=== PATIENT | male | born 1975 | race Caucasian/White ===

== ENCOUNTER 2020-07-26 09:05 | Inpatient (IN) | payer OTHER ==
[~2020-07-26] VITALS: Ht 170.2 cm; Wt 91.5 kg
[2020-07-26] MEDS ORDERED: DEXAMETHASONE SOD PHOS 10 MG/ML VIAL. IVP ONE (09:30)
[2020-07-26] MEDS ORDERED: ASPIRIN 325 MG TABLET PO ONE (09:30)
[2020-07-26] MEDS ORDERED: IV NORMAL SALINE 1,000ML 1,000 ML IV ONE (09:30)
[2020-07-26 09:58] LABS: BASO % 1 % (0-3); EOS # 0.2 x10^3/uL (0.0-0.7); EOS % 4 % (0-3); HEMATOCRIT 48.6 % (39.0-53.0); HEMOGLOBIN 16.6 g/dL (13.0-17.5); LYMPH # 1.3 x10^3/uL (1.0-4.8); LYMPH % 34 % (24-48); MEAN CORPUSCULAR HEMOGLOBIN 32 pg (25-35); MEAN CORPUSCULAR HGB CONC 34 g/dL (31-37); MEAN CORPUSCULAR VOLUME 94 fL (79-100); MONO # 0.4 x10^3/uL (0.0-1.1); MONO % 11 % (0-9); NEUT # 1.9 x10^3uL (1.8-7.7); NEUT % 51 % (31-73); PLATELET COUNT 210 x10^3/uL (140-400); RED BLOOD COUNT 5.17 x10^6/uL (4.30-5.70); RED CELL DISTRIBUTION WIDTH 12.6 % (11.5-14.5); WHITE BLOOD COUNT 3.8 x10^3/uL (4.0-11.0)
[2020-07-26 10:00] LABS: CALCIUM 9.1 mg/dL (8.5-10.1); CREATININE 1.2 mg/dL (0.7-1.3); GFR 64.9; POTASSIUM 4.4 mmol/L (3.5-5.1)
[2020-07-26 10:14] LABS: ALBUMIN 4.1 g/dL (3.4-5.0); ALBUMIN/GLOBULIN RATIO 1.1 (1.0-1.7); MAGNESIUM 2.3 mg/dL (1.8-2.4); TOTAL BILIRUBIN 0.9 mg/dL (0.2-1.0); TOTAL PROTEIN 7.8 g/dL (6.4-8.2)
[2020-07-26 10:25] LABS: BILIRUBIN,URINE NEG (NEG); CLARITY,URINE HAZY; COLOR,URINE AMBER; GLUCOSE,URINE NEG (NEG)
[2020-07-26 10:26] LABS: BACTERIA,URINE 0 /HPF (0-FEW); NITRITE,URINE NEG (NEG); SQUAMOUS EPITHELIAL CELL,UR OCC /LPF; WBC,URINE OCC /HPF (0-4)
--- NOTE | 2020-07-26 10:54 | PHYS DOC ---
Past History Past Medical History: High Cholesterol (Diet controlled?), Hypertension (Diet controlled?), Other Additional Past Medical Histor: Sleep Apnea Past Surgical History: No Surgical History Smoking: Non-smoker Alcohol Use: Rarely Drug Use: None General Adult EDM: Chief Complaint: CHEST PAIN HPI: HPI: 45-year-old male presents with 4-day history of chest discomfort. Patient reports he recently tested positive on 07/20/2020 for COVID-19 at [facility]. Patient did have body aches and fever/chills that started on Sunday. Reports roommate positive as well. Patient reports today he had increased shortness of breath. Patient called [facility] who instructed him to be seen at urgent care or ER. Patient reports he called in urgent care who instructed him to present to the ER for further evaluation. Patient denies any leg swelling or calf tenderness. Denies history or family history of DVT/PE. Patient reports cardiac risk factors of "diet controlled" hypertension and high cholesterol for which he has never been started on medication. Patient also reports some dizziness. Denies any nausea or vomiting. Review of Systems: Review of Systems: Constitutional: Denies fever or chills Eyes: Denies redness or eye pain HENT: Denies nasal congestion or sore throat Respiratory: Reports cough and shortness of breath Cardiovascular: Reports chest pain; denies palpitations GI: Denies abdominal pain, nausea, or vomiting : Denies dysuria or hematuria Musculoskeletal: Denies back pain or joint pain Integument: Denies rash or skin lesions Neurologic: Denies headache, focal weakness or sensory changes Complete systems were reviewed and found to be within normal limits, except as documented in this note. Current Medications: Current Meds: Current Medications Medications (Trade) Dose Ordered Sig/[facility] Start Time Stop Time Status Last Admin Dose Admin Aspirin (Adrianna Aspirin) 325 mg 1X ONCE 07/26/20 09:30 07/26/20 09:56 DC 07/26/20 09:41 325 MG Dexamethasone Sodium Phosphate (Decadron) 10 mg 1X ONCE 07/26/20 09:30 07/26/20 09:56 DC 07/26/20 09:41 10 MG Sodium Chloride 1,000 ml @ 1,000 mls/hr 1X ONCE 07/26/20 09:30 07/26/20 10:29 DC 07/26/20 09:42 1,000 MLS/HR Allergies: Allergies: Allergies Coded Allergies Type Severity Reaction Last Updated Verified No Known Drug Allergies 07/26/20 No Physical Exam: PE: Constitutional: Well developed, well nourished, no acute distress, non-toxic appearance HENT: Normocephalic, atraumatic Eyes: Conjunctiva normal, no discharge Neck: Normal range of motion, supple Lungs & Thorax: No respiratory distress, equal chest rise and fall, frequent intermittent deep inspirations Abdomen: Soft, no tenderness Skin: Warm, dry, no erythema, no rash Extremities: No tenderness, ROM intact, no edema Neurologic: Alert and oriented X 3, normal motor function, normal sensory function, no focal deficits noted Psychologic: Affect normal, judgment normal Current Patient Data: Labs: Laboratory Tests Test 07/26/20 09:35 07/26/20 09:43 White Blood Count 3.8 x10^3/uL (4.0-11.0) L Red Blood Count 5.17 x10^6/uL (4.30-5.70) Hemoglobin 16.6 g/dL (13.0-17.5) Hematocrit 48.6 % (39.0-53.0) Mean Corpuscular Volume 94 fL (79-100) Mean Corpuscular Hemoglobin 32 pg (25-35) Mean Corpuscular Hemoglobin Concent 34 g/dL (31-37) Red Cell Distribution Width 12.6 % (11.5-14.5) Platelet Count 210 x10^3/uL (140-400) Neutrophils (%) (Auto) 51 % (31-73) Lymphocytes (%) (Auto) 34 % (24-48) Monocytes (%) (Auto) 11 % (0-9) H Eosinophils (%) (Auto) 4 % (0-3) H Basophils (%) (Auto) 1 % (0-3) Neutrophils # (Auto) 1.9 x10^3uL (1.8-7.7) Lymphocytes # (Auto) 1.3 x10^3/uL (1.0-4.8) Monocytes # (Auto) 0.4 x10^3/uL (0.0-1.1) Eosinophils # (Auto) 0.2 x10^3/uL (0.0-0.7) Basophils # (Auto) 0.0 x10^3/uL (0.0-0.2) Prothrombin Time 10.1 SEC (9.4-11.4) Prothrombin Time INR 1.0 (0.9-1.1) Activated Partial Thromboplast Time 26 SEC (23-33) D-Dimer (Graciela) 0.29 mg/L (0.00-0.50) Sodium Level 138 mmol/L (136-145) Potassium Level 4.4 mmol/L (3.5-5.1) Chloride Level 102 mmol/L (98-107) Carbon Dioxide Level 33 mmol/L (21-32) H Anion Gap 3 (6-14) L Blood Urea Nitrogen 16 mg/dL (8-26) Creatinine 1.2 mg/dL (0.7-1.3) Estimated GFR (Cockcroft-Gault) 64.9 BUN/Creatinine Ratio 13 (6-20) Glucose Level 89 mg/dL (70-99) Lactic Acid Level 1.1 mmol/L (0.4-2.0) Calcium Level 9.1 mg/dL (8.5-10.1) Magnesium Level 2.3 mg/dL (1.8-2.4) Total Bilirubin 0.9 mg/dL (0.2-1.0) Aspartate Amino Transferase (AST) 25 U/L (15-37) Alanine Aminotransferase (ALT) 42 U/L (16-63) Alkaline Phosphatase 90 U/L (46-116) Troponin I Quantitative 0.060 ng/mL (0-0.055) H FU-Uck-K-Type Natriuretic Peptide 18 pg/mL (0-124) Total Protein 7.8 g/dL (6.4-8.2) Albumin 4.1 g/dL (3.4-5.0) Albumin/Globulin Ratio 1.1 (1.0-1.7) Lipase 171 U/L (73-393) Urine Collection Type Unknown Urine Color Jess Urine Clarity Hazy Urine pH 8.5 Urine Specific [place] 1.020 Urine Protein Trace (NEG-TRACE) Urine Glucose (UA) Neg mg/dL (NEG) Urine Ketones (Stick) Neg mg/dL (NEG) Urine Blood Neg (NEG) Urine Nitrite Neg (NEG) Urine Bilirubin Neg (NEG) Urine Urobilinogen Dipstick 1.0 mg/dL (0.2 mg/dL) Urine Leukocyte Esterase Neg (NEG) Urine RBC 1-2 /HPF (0-2) Urine WBC Occ /HPF (0-4) Urine Squamous Epithelial Cells Occ /LPF Urine Bacteria 0 /HPF (0-FEW) Urine Mucus Slight /LPF Vital Signs: Vital Signs Date Time Temp Pulse Resp B/P (MAP) Pulse Ox O2 Delivery O2 Flow Rate FiO2 07/26/20 10:00 43 16 131/85 (100) 98 Room Air 07/26/20 09:10 97.8 EKG: EKG: @0920 Sinus bradycardia at 50bpm, NO ST elevation, Jpoint elevation of I and aVL, QRS 94ms, QT/QTc 422/387ms Radiology/Procedures: Radiology/Procedures: PROCEDURE: CHEST AP ONLY EXAM: AP View of the chest DATE: 07/26/2020 10:35 AM INDICATION: Reason: chest pain/pressure/SOA, hx of COVID + / Spl. Instructions: / History: COMPARISON: No Prior FINDINGS: The heart is not enlarged. Mediastinal and hilar contours are normal. Patchy opacities bilateral lung bases likely atelectasis or developing consolidation. No pleural effusion or pneumothorax. IMPRESSION: Patchy opacities bilateral lung bases likely atelectasis or developing consolidation. Electronically signed by: Angel Yarbrough MD (07/26/2020 12:55 PM) [id number] Heart Score: HEART Score for Chest Pain: HEART Score for Chest Pain Response (Comments) Value History Slighlty/Non-Suspicious 0 ECG Normal 0 Age >45 - < 65 1 Risk Factors 1 or 2 Risk Factors 1 Troponin >1-<3x Normal Limit 1 Total 3 Risk Factors: Risk Factors: DM, Current or recent (<one month) smoker, HTN, HLP, family history of CAD, obesity. Risk Scores: Score 0 - 3: 2.5% MACE over next 6 weeks - Discharge Home Score 4 - 6: 20.3% MACE over next 6 weeks - Admit for Clinical Observation Score 7 - 10: 72.7% MACE over next 6 weeks - Early Invasive Strategies Course & Med Decision Making: Course & Med Decision Making Pertinent Labs and Imaging studies reviewed. (See chart for details) Patient presents with report of chest discomfort and shortness of air. History of recently testing positive for COVID-19. Sats stable upon arrival. EKG without signs of STEMI. Low cardiac risk factors however patient does report history of diet-controlled hypertension and high cholesterol for which he has never been on medication. Labs obtained and posted to chart. Troponin very slightly elevated at 0.06. D-dimer within normal limits. Chest x-ray stable. Discuss case with cardiology DIRECTOR OF [employer]ING [employer] with Dr. Tinajero, who reports patient may stay at [facility] and does not need further anticoagulation at this time. In agreement with observation admission to hospitalist with serial troponins. Patient requiring observation admission for further evaluation and treatment. Discussed with Dr. Hodges (hospitalist) who is in agreement with admission. Discussed findings and plan with patient, who acknowledges understanding and agreement. COVID-19 CRITERIA: The patient was evaluated during the global COVID-19 pandemic, and that diagnosis was suspected/considered upon their initial presentation. Their evaluation, treatment and testing was consistent with current guidelines for patients who present with complaints or symptoms that may be related to COVID-19. Dragon Disclaimer: Dragon Disclaimer: This electronic medical record was generated, in whole or in part, using a voice recognition dictation system. Departure Departure: Impression: Primary Impression: Chest pain Qualified Codes: R07.9 - Chest pain, unspecified Additional Impressions: Elevated troponin COVID-19 Disposition: ADMITTED INPT THIS HOSP Admitting Physician: Armida Hodges Condition: GUARDED Referrals: PCP,UNKNOWN (PCP) Scripts Dexamethasone (DEXAMETHASONE) 6 Mg Tablet 6 MG PO DAILY for covid pneumonia for 10 Days, #10 TAB Prov: ARMIDA HODGES MD 07/27/20 Azithromycin (ZITHROMAX) 250 Mg Tablet 250 MG PO DAILY for ANTI-BIOTIC for 4 Days, #4 TAB 0 Refills Prov: ARMIDA HODGES MD 07/27/20 Cefdinir (CEFDINIR) 300 Mg Capsule 1 CAP PO BID for pneumonia, #14 CAP Prov: ARMIDA HODGES MD 07/27/20 COVID-19 Assessment COVID-19 Patient Risks: Age 65 or older: No Sign of co-morbidity: No Exp to person + for COVID: Yes Exp to PUI: No Travel from affected area: No Lower respiratory symptoms: Yes Fever: Yes Other: Yes PPE Use: Full PPE with N95 mask or PAPR: Yes Critical Care Time Critical care time was 30 minutes which includes time at bedside, spent in discussion of patient's care with specialists and/or family members, with interpretation of laboratory and/or radiological studies and is exclusive of procedures. CHARLIE SANCHES DO Jul 26, 2020 10:53
--- NOTE | 2020-07-26 12:57 | RAD ---
EXAM: AP View of the chest DATE: 07/26/2020 10:35 AM INDICATION: Reason: chest pain/pressure/SOA, hx of COVID + / Spl. Instructions: / History: COMPARISON: No Prior FINDINGS: The heart is not enlarged. Mediastinal and hilar contours are normal. Patchy opacities bilateral lung bases likely atelectasis or developing consolidation. No pleural effusion or pneumothorax. IMPRESSION: Patchy opacities bilateral lung bases likely atelectasis or developing consolidation. Electronically signed by: Angel Yarbrough MD (07/26/2020 12:55 PM) [id number]
[2020-07-26 13:18] VITALS: BP 95/55
[2020-07-26] MEDS ORDERED: AZITHROMYCIN 250 MG TABLET. PO ONE (16:00)
[2020-07-26] MEDS ORDERED: OMEP40CA45 PO (16:20)
[2020-07-26] MEDS ORDERED: LACT1CAP6 PO (16:20)
--- NOTE | 2020-07-26 16:28 | EKG ---
[address] [address] Test Date: 2020-07-26 Test Time: 09:20:58 Pat Name: ISIAH EMERSON Department: Room: Gender: M Route Sales Manager: : 1975 Requested By: CHARLIE SANCHES Order Number: [id number] Reading MD: Measurements Intervals Gregory Rate: 50 P: 16 UT: 152 QRS: 1 QRSD: 94 T: -2 QT: 422 QTc: 387 Interpretive Statements SINUS RHYTHM OTHERWISE NORMAL ECG RI6.02 No previous ECG available for comparison
--- NOTE | 2020-07-26 17:30 | HP ---
ADMIT DATE: 07/26/2020 HISTORY OF PRESENT ILLNESS: The patient is a 45-year-old male patient who came to the Emergency Room complaining of chest pain. He apparently started having fever for about 8 days ago and last Sunday, he was tested positive for COVID-19 at the [facility]. He did complain of having body aches, fever, chills that started on Sunday, reported that his roommate was positive as well and he also started complaining of shortness of breath and chest discomfort. He called the [facility] who instructed him to be seen at the urgent care or ER. The patient reportedly called an urgent care who instructed him to present to the Emergency Room for further evaluation. The patient denied any swelling of his legs. He said his cough is mostly dry. He denied any medical problem. He stated that he has diet controlled hypertension and high cholesterol for which he has never started on any medication. He did report some dizziness, but denied any nausea or vomiting and he was extensively investigated in the Emergency Room, has had a CBC which showed that he has mild leukocytosis. His chemistry was essentially unremarkable. Lactic acid was normal; however, his first troponin was 0.060. His prothrombin time, INR and aPTT are normal. D-dimer was low at 0.29 and his urinalysis was essentially unremarkable. His chest x-ray apparently showed that the heart is not enlarged. Mediastinal and hilar contours are normal. There are patchy opacities bilateral lung bases, likely atelectasis or developing consolidation. There is no pleural effusion or pneumothorax. The patient was admitted to do 2 more sets of cardiac enzyme and to consult the currency exchange specialist. PAST MEDICAL HISTORY: Significant for obstructive sleep apnea, for which he is on CPAP. He has also gastroesophageal reflux disease and he stated that he has hypertension that is diet controlled and hypercholesterolemia that he never was on any treatment for it. PAST SURGICAL HISTORY: Significant for cervical spine surgery as well as multiple hernia repairs. ALLERGIES: He has no known drug allergies. MEDICATIONS: He is on omeprazole as well as probiotic. FAMILY HISTORY: He has one brother and one sister, both younger and healthy. His father is alive at the age of 76 and has coronary artery disease and hypertension. Mother is alive at the age of 73, is known to have hypertension. SOCIAL HISTORY: He is , has 2 daughters. He never smoked. He drinks alcohol on a daily basis. He drinks a glass of wine daily. He does not use any illicit drugs. He is a temporary admission here. Normally, he is stationed at [place] and he is in the [employer]. REVIEW OF SYSTEMS: The patient denied any blurring of vision, cataract, glaucoma or macular degeneration. Denied any earache, tinnitus or sensorineural deafness. Denied any nosebleeds, stuffy nose or postnasal drip. Denied any sore throat, sore tongue, toothache, hoarseness of voice or difficulty swallowing. He denied any nausea, vomiting, diarrhea or constipation. Denied any hematemesis, melena or hematochezia. Denied any dysuria, frequency or hematuria. Did complain of shortness of breath and chest discomfort. Did have some fever, aches and pains. Denied any dizziness or lightheadedness. PHYSICAL EXAMINATION: GENERAL: On arrival to the Emergency Room, he looked well and was clearly in no apparent respiratory distress. There is no pallor, jaundice, cyanosis or thyromegaly. No jugular venous distention or limb edema. VITAL SIGNS: His heart rate was 61, blood pressure was 135/61, temperature was 97.8, respiratory rate was 16, and oxygen saturation was 98% on room air. HEAD, EYES, EARS, NOSE AND THROAT: Normocephalic, atraumatic. NECK: Supple. HEART: Showed normal first and second heart sounds. No gallop, rub or murmur. CHEST: Clear to auscultation. No crepitation or rhonchi. ABDOMEN: Distended, soft, nontender. NEUROLOGIC: He was grossly intact. LABORATORY DATA: Showed a white cell count of 3800, hemoglobin 16.6, hematocrit 48.6, MCV 94, platelet count 210,000. Manual differential showed 51% polymorphs, 34% lymphocytes, 11% monocytes. His prothrombin time, INR and aPTT are normal. D-dimer was 0.29. His chemistry showed a serum sodium 138, potassium 4.4, chloride 102, bicarbonate 33, anion gap of 3, BUN 16, creatinine 1.2, estimated GFR was 64 mL per minute. His glucose was 89, lactic acid is 1.1, calcium was 9.1, magnesium was 2.3. Total bilirubin, AST, ALT, alkaline phosphatase were normal. His first set of troponin was 0.060. His beta natriuretic peptide was 18. Total protein 7.8, albumin was 4.1. Lipase was 171. His urinalysis was essentially unremarkable and his chest x-ray showed that the patient has bilateral patchy opacities of both lung bases, likely atelectasis and/or developing consolidation. ASSESSMENT AND PLAN: In summary, this is a 45-year-old male patient who was admitted with shortness of breath and chest pain. It was tested positive about a week ago. His chest x-ray has bilateral patchy infiltrate. The patient was admitted to do 2 more sets of cardiac enzymes. I will continue with dexamethasone. Start him on IV antibiotic in the form of ceftriaxone and Zithromax and monitor him closely as his oxygen saturation continues to be 97% on room air. RIOS TANG MD DR: DANIEL/marcus JOB#: [id number] / [id number]
[2020-07-26] MEDS: ACETAMINOPHEN 325 MG TABLET PO PRN (17:55)
[2020-07-26 19:00] VITALS: BP 139/82
[2020-07-26] MEDS: LACTOBACILLUS RHAMNOSUS GG 1 CAPSULE. PO SCH (20:32)
[2020-07-27 00:54] VITALS: BP 104/66
[2020-07-27 05:19] VITALS: BP 117/73
[2020-07-27 06:31] LABS: HEMATOCRIT 44.4 % (39.0-53.0); HEMOGLOBIN 15.1 g/dL (13.0-17.5); RED BLOOD COUNT 4.73 x10^6/uL (4.30-5.70); RED CELL DISTRIBUTION WIDTH 12.8 % (11.5-14.5); WHITE BLOOD COUNT 8.2 x10^3/uL (4.0-11.0)
[2020-07-27 06:44] LABS: ALBUMIN 3.5 g/dL (3.4-5.0); CALCIUM 8.7 mg/dL (8.5-10.1); GFR 80.1; POTASSIUM 3.8 mmol/L (3.5-5.1); TOTAL BILIRUBIN 0.6 mg/dL (0.2-1.0); TOTAL PROTEIN 7.1 g/dL (6.4-8.2)
[2020-07-27] MEDS ORDERED: PANTOPRAZOLE 40 MG TABLET. PO SCH (07:30)
[2020-07-27] MEDS ORDERED: DEXAMETHASONE 4 MG TABLET PO SCH (08:00)
[2020-07-27] MEDS: LACTOBACILLUS RHAMNOSUS GG 1 CAPSULE. PO SCH (08:10)
--- NOTE | 2020-07-27 08:27 | PDOC2 ---
CARDIAC CONSULT DATE OF CONSULT DOS: DATE: 07/27/20 TIME: 08:20 REASON FOR CONSULT Reason for Consult Elevated troponin Chest pain REFERRING PHYSICIAN Referring Physician Dr. De Jesus SOURCE Source: Chart review, Patient HPI History of Present Illness This is a 45 yo male who presented secondary to chest pressure and shortness of breath. About 8 days ago, began having fever, body aches, chills and some nausea. Roommate tested positive for COVID the week prior. Due to symptoms and exposure, he was evaluated at [facility] on 07/20/2020 and was + as well. Also developed cough and congestion. Has been taking [id number] Mucinex and decongestants for symptoms. On Sunday, developed pressure in his central chest. Is non-radiating. Was worse with cough. [place] more short of breath. Pain persisted on Sunday, but seemed to be slightly better Sunday. Was much improved on Sunday, but difficulty taking deep breath persisted. Family encouraged him to be seen by provided. Called [facility] who referred him to the ED as he was positive for COVID. Troponin noted to be mildly elevated, which prompted this consult. Of noted, patient is extremely active and routinely exercises. Partakes intense physical regimens with HR up to 160 for a hour of time. Denies any experience of chest pain with intense physical activity. PAST MEDICAL HISTORY Pulmonary: Other (sleep apnea ) GI: GERD PAST SURGICAL HISTORY Past Surgical History: Other (cervial surgery) FAMILY HISTORY Family History: Diabetes, Hypertension, Other (AFIB- father ) SOCIAL HISTORY Smoke: No ALCOHOL: none Drugs: None Lives: Roommate CURRENT MEDICATIONS Current Medications Current Medications Aspirin (Adrianna Aspirin) 325 mg 1X ONCE PO Last administered on 07/26/20at 09:41; Start 07/26/20 at 09:30; Stop 07/26/20 at 09:56; Status DC Sodium Chloride 1,000 ml @ 1,000 mls/hr 1X ONCE IV Last administered on 07/26/20at 09:42; Start 07/26/20 at 09:30; Stop 07/26/20 at 10:29; Status DC Dexamethasone Sodium Phosphate (Decadron) 10 mg 1X ONCE IVP Last administered on 07/26/20at 09:41; Start 07/26/20 at 09:30; Stop 07/26/20 at 09:56; Status DC Ceftriaxone Sodium 1 gm/ Sodium Chloride 50 ml @ 100 mls/hr Q24H IV Last administered on 07/26/20at 17:10; Start 07/26/20 at 16:00 Azithromycin (Zithromax) 500 mg 1X ONCE PO Last administered on 07/26/20at 17:09; Start 07/26/20 at 16:00; Stop 07/26/20 at 16:11; Status DC Azithromycin (Zithromax) 250 mg DAILY PO Last administered on 07/27/20at 08:10; Start 07/27/20 at 09:00 Dexamethasone (Decadron) 6 mg DAILYWBKFT PO Last administered on 07/27/20at 08:10; Start 07/27/20 at 08:00 Lactobacillus Rhamnosus (Culturelle) 1 cap BID PO Last administered on 07/27/20at 08:10; Start 07/26/20 at 21:00 Pantoprazole Sodium (Protonix) 40 mg DAILYAC PO Last administered on 07/27/20at 08:10; Start 07/27/20 at 07:30 Acetaminophen (Tylenol) 650 mg PRN Q6HRS PRN PO MILD PAIN / TEMP > 100.3'F Last administered on 07/26/20at 17:55; Start 07/26/20 at 17:30 Active Scripts Active Reported Probiotic (Lactobacillus Acidophilus) 1 Each Capsule 1 Cap PO BID Omeprazole 40 Mg Capsule. 1 Cap PO DAILY ALLERGIES Allergies: Coded Allergies: No Known Drug Allergies (Unverified , 07/26/20) ROS Review of Systems 14 point ROS conducted with pertinent positives noted above in HPI PHYSICAL EXAM General: Alert, Oriented X3, Cooperative, No acute distress HEENT: Atraumatic Lungs: Other (on RA) Heart: Regular rate Abdomen: Soft, No tenderness Extremities: No edema, Normal pulses Skin: No breakdown Neuro: Normal speech, Sensation intact Psych/Mental Status: Mental status NL, Mood NL MUSCULOSKELETAL: No deformity VITALS Vital Signs Vital Signs Date Time Temp Pulse Resp B/P (MAP) Pulse Ox O2 Delivery O2 Flow Rate FiO2 07/27/20 05:19 97.7 58 18 117/73 (88) 97 Room Air LABS LABS Laboratory Tests Test 07/26/20 09:35 07/26/20 09:43 07/26/20 12:40 07/26/20 17:10 White Blood Count 3.8 x10^3/uL (4.0-11.0) Red Blood Count 5.17 x10^6/uL (4.30-5.70) Hemoglobin 16.6 g/dL (13.0-17.5) Hematocrit 48.6 % (39.0-53.0) Mean Corpuscular Volume 94 fL (79-100) Mean Corpuscular Hemoglobin 32 pg (25-35) Mean Corpuscular Hemoglobin Concent 34 g/dL (31-37) Red Cell Distribution Width 12.6 % (11.5-14.5) Platelet Count 210 x10^3/uL (140-400) Neutrophils (%) (Auto) 51 % (31-73) Lymphocytes (%) (Auto) 34 % (24-48) Monocytes (%) (Auto) 11 % (0-9) Eosinophils (%) (Auto) 4 % (0-3) Basophils (%) (Auto) 1 % (0-3) Neutrophils # (Auto) 1.9 x10^3uL (1.8-7.7) Lymphocytes # (Auto) 1.3 x10^3/uL (1.0-4.8) Monocytes # (Auto) 0.4 x10^3/uL (0.0-1.1) Eosinophils # (Auto) 0.2 x10^3/uL (0.0-0.7) Basophils # (Auto) 0.0 x10^3/uL (0.0-0.2) Prothrombin Time 10.1 SEC (9.4-11.4) Prothromb Time International Ratio 1.0 (0.9-1.1) Activated Partial Thromboplast Time 26 SEC (23-33) D-Dimer (Graciela) 0.29 mg/L (0.00-0.50) Sodium Level 138 mmol/L (136-145) Potassium Level 4.4 mmol/L (3.5-5.1) Chloride Level 102 mmol/L (98-107) Carbon Dioxide Level 33 mmol/L (21-32) Anion Gap 3 (6-14) Blood Urea Nitrogen 16 mg/dL (8-26) Creatinine 1.2 mg/dL (0.7-1.3) Estimated GFR (Cockcroft-Gault) 64.9 BUN/Creatinine Ratio 13 (6-20) Glucose Level 89 mg/dL (70-99) Lactic Acid Level 1.1 mmol/L (0.4-2.0) Calcium Level 9.1 mg/dL (8.5-10.1) Magnesium Level 2.3 mg/dL (1.8-2.4) Total Bilirubin 0.9 mg/dL (0.2-1.0) Aspartate Amino Transf (AST/SGOT) 25 U/L (15-37) Alanine Aminotransferase (ALT/SGPT) 42 U/L (16-63) Alkaline Phosphatase 90 U/L (46-116) Troponin I Quantitative 0.060 ng/mL (0-0.055) 0.058 ng/mL (0-0.055) 0.061 ng/mL (0-0.055) ZB-Son-C-Type Natriuretic Peptide 18 pg/mL (0-124) Total Protein 7.8 g/dL (6.4-8.2) Albumin 4.1 g/dL (3.4-5.0) Albumin/Globulin Ratio 1.1 (1.0-1.7) Lipase 171 U/L (73-393) Urine Collection Type Unknown Urine Color Jess Urine Clarity Hazy Urine pH 8.5 Urine Specific [place] 1.020 Urine Protein Trace (NEG-TRACE) Urine Glucose (UA) Neg mg/dL (NEG) Urine Ketones (Stick) Neg mg/dL (NEG) Urine Blood Neg (NEG) Urine Nitrite Neg (NEG) Urine Bilirubin Neg (NEG) Urine Urobilinogen Dipstick 1.0 mg/dL (0.2 mg/dL) Urine Leukocyte Esterase Neg (NEG) Urine RBC 1-2 /HPF (0-2) Urine WBC Occ /HPF (0-4) Urine Squamous Epithelial Cells Occ /LPF Urine Bacteria 0 /HPF (0-FEW) Urine Mucus Slight /LPF Test 07/27/20 05:15 White Blood Count 8.2 x10^3/uL (4.0-11.0) Red Blood Count 4.73 x10^6/uL (4.30-5.70) Hemoglobin 15.1 g/dL (13.0-17.5) Hematocrit 44.4 % (39.0-53.0) Mean Corpuscular Volume 94 fL (79-100) Mean Corpuscular Hemoglobin 32 pg (25-35) Mean Corpuscular Hemoglobin Concent 34 g/dL (31-37) Red Cell Distribution Width 12.8 % (11.5-14.5) Platelet Count 203 x10^3/uL (140-400) Sodium Level 140 mmol/L (136-145) Potassium Level 3.8 mmol/L (3.5-5.1) Chloride Level 103 mmol/L (98-107) Carbon Dioxide Level 24 mmol/L (21-32) Anion Gap 13 (6-14) Blood Urea Nitrogen 16 mg/dL (8-26) Creatinine 1.0 mg/dL (0.7-1.3) Estimated GFR (Cockcroft-Gault) 80.1 BUN/Creatinine Ratio 16 (6-20) Glucose Level 112 mg/dL (70-99) Calcium Level 8.7 mg/dL (8.5-10.1) Total Bilirubin 0.6 mg/dL (0.2-1.0) Aspartate Amino Transf (AST/SGOT) 21 U/L (15-37) Alanine Aminotransferase (ALT/SGPT) 38 U/L (16-63) Alkaline Phosphatase 71 U/L (46-116) Total Protein 7.1 g/dL (6.4-8.2) Albumin 3.5 g/dL (3.4-5.0) Albumin/Globulin Ratio 1.0 (1.0-1.7) ASSESSMENT/PLAN Assessment/Plan 1. Dyspnea in the setting of COVID PNA 2. Chest pain, pressure; atypical. Most probably secondary above. Worse with cough. Is very physically active. No chest pain with intense physical activity. 3. Mild troponin elevation; highest 0.061. Most probable type II, demand ischemia in the setting of COVID. 4. Sinus bradycardia; lowest 47. No pauses. 5. GERD Recommendations ASA Repeat trop this am Lipids Avoid AV korina blocking agents Outpatient echo when recovered from COVID Will need referral from [facility] to arrange Ongoing lung optimization, treatment of COVID PNA as per ASHLEIGH TORRES APRN Jul 27, 2020 08:27
[2020-07-27] MEDS: IPRATROPIUM/ALBUTEROL 20/100mcg/INH INHALER. INH SCH ×2 (08:53→12:00)
[2020-07-27] MEDS: ACETAMINOPHEN 325 MG TABLET PO PRN (08:53)
[2020-07-27] MEDS ORDERED: ASPIRIN ENTERIC COATED 81 MG TABLET.DR. PO SCH (09:00)
[2020-07-27] MEDS ORDERED: CHOLECALCIFEROL (VITAMIN D3) 1,000 UNIT TABLET PO SCH (09:00)
[2020-07-27] MEDS ORDERED: FAMOTIDINE 20 MG TABLET PO SCH (09:00)
[2020-07-27] MEDS ORDERED: AZITHROMYCIN 250 MG TABLET. PO SCH (09:00)
[2020-07-27] MEDS ORDERED: guaiFENesin/PS-EPHED 600/60MG 1 TAB TAB.ER.12H PO SCH (10:00)
[2020-07-27 10:27] VITALS: BP 131/84
[2020-07-27] MEDS ORDERED: CEFD300C PO (13:40)
[2020-07-27] MEDS ORDERED: DEXA6TAB PO (13:40)
[2020-07-27] MEDS ORDERED: AZIT250T PO (13:40)
--- NOTE | 2020-07-27 14:04 | DS ---
DATE OF DISCHARGE: 07/27/2020 HOSPITAL COURSE: The patient is a 45-year-old male patient who tested positive for COVID-19 about a week ago and 3 days ago, he started complaining of cough with congestion and also chest pressure that is nonradiating. He also has some shortness of breath. The pain persisted on Sunday and Sunday and again on Sunday and therefore he came to the Emergency Room where he was found to have slightly elevated troponin. His chest x-ray also showed the patient has patchy opacities bilaterally, bilateral lung bases, likely atelectasis, developing consolidation. We did start him on IV Rocephin, Zithromax as well as dexamethasone. We trended the troponin and the troponin came down. He was seen by the bleach plant operator and basically had mild elevation of troponin that felt to be type 2 demand ischemia in the setting of COVID. He did have also sinus bradycardia, but no pauses. He has underlying gastroesophageal reflux disease. The patient will be discharged home to continue with the cefdinir, Zithromax as well as dexamethasone and arrangement will be made for him to be seen as an outpatient at the [facility] for echocardiogram and perhaps ischemic workup was deemed necessary. When I saw him today, he looked well and was clearly in no apparent respiratory distress. On questioning him, he denied any further episodes of chest pain. He is maintaining his oxygen saturation at 97% on room air. OBJECTIVE: GENERAL: When I examined him, he looked well and was clearly in no apparent respiratory distress. No pallor, jaundice, cyanosis or thyromegaly. No jugular venous distention or limb edema. VITAL SIGNS: His heart rate was 55, blood pressure was 131/84, temperature was 97.5, respiratory rate 20, and oxygen saturation was 99% on room air. HEAD, EYES, EARS, NOSE AND THROAT: Showed normocephalic, atraumatic. NECK: Supple. HEART: Showed normal first and second heart sounds. No gallop, rub or murmur. CHEST: Clear to auscultation. No crepitation or rhonchi. ABDOMEN: Distended, soft, nontender. NEUROLOGIC: He was grossly intact. LABORATORY DATA: This morning showed a white cell count of 8200, hemoglobin 15, hematocrit 44, MCV 94 and platelet count 203,000. Serum sodium was 140, potassium 3.8, chloride 103, bicarbonate 24, anion gap of 13, BUN 16, creatinine 1, estimated GFR was 80 mL per minute. His glucose 112, calcium was 8.7. Total bilirubin, AST, ALT, alkaline phosphatase were normal. His total protein 7.1, albumin was 3.5. His troponin has peaked at 0.61. DISCHARGE MEDICATIONS: The patient was discharged home to continue on Zithromax 250 mg once a day for 4 more days, cefdinir 300 mg twice a day for 7 days, dexamethasone tapering fashion. Arrangement will be made for him to be referred to the [facility] for an outpatient echocardiogram. Meanwhile, he should continue with omeprazole for gastroesophageal reflux disease and lactobacillus rhamnosus as a probiotic. FINAL DISCHARGE DIAGNOSES: Chest pain, atypical, myocardial infarction ruled out, COVID-19 pneumonia, gastroesophageal reflux disease, hypertension, hyperlipidemia. RIOS TANG MD DR: DANIEL/marcus JOB#: [id number] / [id number]
[2020-07-27 15:07] LABS: THYROID STIM HORMONE (TSH) 0.473 uIU/mL (0.358-3.740)
== END 2020-07-27 14:10 | disposition home or self-care (01) | DRG 177 ==
LOC: ER 09:05 → 1 SOUTH 11:21
PROVIDERS: ADMIT Internal Medicine; ATTEND Internal Medicine
DX: U07.1 COVID-19 (principal); J12.82 Pneumonia due to coronavirus disease 2019; I24.8 Other forms of acute ischemic heart disease; E78.00 Pure hypercholesterolemia, unspecified; I10 Essential (primary) hypertension; K21.9 Gastro-esophageal reflux disease without esophagitis; G47.33 Obstructive sleep apnea (adult) (pediatric); R00.1 Bradycardia, unspecified; E78.5 Hyperlipidemia, unspecified; I25.2 Old myocardial infarction; Z82.49 Family history of ischemic heart disease and other diseases of the circulatory system; Z83.3 Family history of diabetes mellitus; R07.89 Other chest pain
CPT/HCPCS: 36415; 71045; 80053; 80061; 81001; 83605; 83690; 83735; 83880; 84443; 84484; 85025; 85027; 85379; 85610; 85730; 93005; 96361; 96374; 99291; J0696; J1100; J8540; J7030